=== PATIENT | female | born 1955 | race Caucasian/White ===

== ENCOUNTER 2019-07-17 14:35 | Inpatient (IN) | payer MEDICARE ==
[~2019-07-17] VITALS: Ht 157.4 cm; Wt 66.8 kg
[2019-07-17 15:01] VITALS: BP 129/74
[2019-07-17 17:14] LABS: BASO # 0.1 10*3/uL (0.0-0.1); BASO % 0.4 % (0.0-1.0); EOS # 0.1 10*3/uL (0.0-0.4); EOS % 0.4 % (1.0-4.0); HEMATOCRIT 33.9 % (37.0-47.0); HEMOGLOBIN 10.7 g/dl (12.0-16.0); LYMPH # 1.3 10*3/uL (1.3-4.4); LYMPH % 6.7 % (27.0-41.0); MEAN CELL VOLUME 87.4 fl (81.0-99.0); MEAN CORPUSCULAR HGB 27.6 pg (27.0-31.0); MEAN CORPUSCULAR HGB CONC 31.6 g/dl (33.0-37.0); MEAN PLATELET VOLUME 9.1 fl (9.6-12.3); MONO # 1.1 10*3/uL (0.1-1.0); MONO % 5.6 % (3.0-9.0); NEUT # 16.3 10*3/uL (2.3-7.9); NEUT % 85.8 % (47.0-73.0); PLATELET COUNT AUTOMATED 411 10*3/uL (130-400); RED BLOOD COUNT 3.88 10*6/uL (4.10-5.10); RED CELL DISTRI WIDTH 14.8 % (0-14.5)
[2019-07-17 17:26] LABS: ACT PARTIAL THROMBO TIME 33.9 SECONDS (20.0-32.1); ALBUMIN 2.6 gm/dl (3.1-4.5); ALKALINE PHOSPHATASE 126 U/L (45-117); BUN 8 mg/dl (7-24); CHLORIDE 99 mmol/L (98-107); LIPASE 56 U/L (73-393); POTASSIUM 3.9 mmol/L (3.5-5.1); SGOT/AST 7 IU/L (3-35); SGPT/ALT 10 U/L (12-78); SODIUM 133 mmol/L (136-145); TOTAL PROTEIN 6.8 gm/dL (6.4-8.2)
[2019-07-17 17:27] LABS: TROPONIN I < 0.015 ng/ml (<0.045)
[2019-07-17 17:56] LABS: BILIRUBIN NEGATIVE (NEGATIVE); BLOOD 2+ (NEGATIVE); CLARITY SL CLOUDY (CLEAR); COLOR YELLOW (YELLOW); GLUCOSE NEGATIVE (NEGATIVE); KETONE NEGATIVE (NEGATIVE); SPECIFIC GRAVITY 1.015 (1.005-1.030)
[2019-07-17 17:57] LABS: LEUKO ESTERASE NEGATIVE (NEGATIVE); NITRITE NEGATIVE (NEGATIVE); UROBILINOGEN 0.2 E.U./dl (0.2-1.0)
[2019-07-17 18:02] LABS: RBC 0-2 rbc/hpf (0-2)
[2019-07-17 18:03] LABS: BACTERIA 2+; MUCOUS TRACE
--- NOTE | 2019-07-17 20:48 | NUR ---
PATIENT STATES MORPHINE "EASED UP" THE PAIN IN HER SHOULDER BUT DID NOT TAKE IT AWAY COMPLETELY. PATIENT STATING THAT HER PAIN IS 10/10.
--- NOTE | 2019-07-17 21:20 | NUR ---
NORCO GIVEN PER C/O PAIN TO RT SHOULDER.
--- NOTE | 2019-07-17 22:20 | NUR ---
PT STATES NORCO NOT EFFECTIVE TO RELIEVE PAIN. MORPHINE PROVIDED FOR 10/10 PAIN TO RT SHOULDER. ICE PACK PROVIDED FOR COMFORT. WILL CONT TO MONITOR.
[2019-07-17 22:37] VITALS: BP 128/73
--- NOTE | 2019-07-17 22:37 | NUR ---
A 64, admitted to 4E, under the services of NAYA Lew DO with a diagnosis of LEUKOCYTOSIS, CHEST PAIN. Chief complaint is RIGHT SHOULDER PAIN THAT RADIATES DOWN RT ARM WITH NUMBNESS AND TINGLING IN FINER TIPS. Patient arrived via wheel chair from ER. Monitor applied. Initial assessment completed. Vital signs taken and recorded. NAYA LEW DO notified of admission to the unit. Orders received. See assessment for past medical history, medications and allergies. Patient and/or family oriented to unit. Clothing/patient valuable form completed. ADRIEN KHALIL
[2019-07-18] VITALS: BP 112/63
--- NOTE | 2019-07-18 01:20 | NUR ---
Pt provided with saltines and linn myah per request. ivf infusing per orders. pt states shoulder pain has eased up. encouraged to call for assistance. call brown in reach, bed in low, locked pos.
--- NOTE | 2019-07-18 04:12 | NUR ---
MORPHINE AND ZOFRAN GIVEN PER PT REQUEST FOR 8/10 PAIN TO RT ARM AND C/O NAUSEA. CALL LIGHT IN REACH.
[2019-07-18 06:27] LABS: BASO # 0.1 10*3/uL (0.0-0.1); BASO % 0.3 % (0.0-1.0); EOS # 0.1 10*3/uL (0.0-0.4); EOS % 0.9 % (1.0-4.0); HEMATOCRIT 34.8 % (37.0-47.0); HEMOGLOBIN 10.6 g/dl (12.0-16.0); LYMPH # 1.1 10*3/uL (1.3-4.4); LYMPH % 7.3 % (27.0-41.0); MEAN CELL VOLUME 87.7 fl (81.0-99.0); MEAN CORPUSCULAR HGB 26.7 pg (27.0-31.0); MEAN CORPUSCULAR HGB CONC 30.5 g/dl (33.0-37.0); MEAN PLATELET VOLUME 9.1 fl (9.6-12.3); MONO # 1.1 10*3/uL (0.1-1.0); MONO % 7.6 % (3.0-9.0); NEUT # 12.2 10*3/uL (2.3-7.9); NEUT % 82.7 % (47.0-73.0); PLATELET COUNT AUTOMATED 388 10*3/uL (130-400); RED BLOOD COUNT 3.97 10*6/uL (4.10-5.10); RED CELL DISTRI WIDTH 14.7 % (0-14.5); WHITE BLOOD COUNT 14.8 10*3/uL (4.8-10.8)
[2019-07-18 07:04] LABS: ALBUMIN 2.2 gm/dl (3.1-4.5); ALKALINE PHOSPHATASE 196 U/L (45-117); BUN 7 mg/dl (7-24); CHLORIDE 103 mmol/L (98-107); CHOLESTEROL 114 mg/dL (<200); CREATININE 0.65 mg/dL (0.55-1.02); FREE T4 1.38 ng/dl (0.76-1.46); HDL CHOLESTEROL 42 mg/dl (40-60); LDL CHOLESTEROL 55 mg/dL (9-159); PHOSPHOROUS 3.6 mg/dL (2.5-4.9); SGOT/AST 23 IU/L (3-35); SGPT/ALT 18 U/L (12-78); SODIUM 137 mmol/L (136-145); TOTAL PROTEIN 6.3 gm/dL (6.4-8.2); TRIGLYCERIDES 86 mg/dl (<150); VLDL CHOLESTEROL 17 mg/dL (6-40)
[2019-07-18 07:22] LABS: ACT PARTIAL THROMBO TIME 36.2 SECONDS (20.0-32.1)
[2019-07-18 08:00] VITALS: BP 113/69
[2019-07-18 08:00] LABS: VITAMIN D, 25-HYDROXY 14.4 ng/mL (30-100)
[2019-07-18] MEDS ORDERED: HYDROCODONE-AC1 EAC1 PO (09:39)
--- NOTE | 2019-07-18 10:15 | NUR ---
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 Patient states lives at home with son. There are 6 steps in the home. Physician: Renee Hilliard Pharmacy: [facility] ([facility]) Home health services: no Patient's level of ADLs: INDEPENDENT Patient has working utilities: yes DME: no Follow-up physician's appointment after d/c: yes Does patient want to access PORTAL?: yes Discharge plan Patient resides at home with her son. She has never needed VNA or SNF and states that she will have no need for home services at discharge. Anticipate pt returning home with no needs. FLORENCE ZENDEJAS
--- NOTE | 2019-07-18 11:33 | NUR ---
Discharge instructions reviewed with patient/family. Patient receptive and verbalizes understanding. Follow-up care arranged. Written instructions given to patient/family. CHA QUEZADA.
== END 2019-07-18 11:33 | disposition home or self-care (01) | DRG 73 ==
LOC: ED 14:35 → EDHOLD 18:39 → 4E 18:39
PROVIDERS: Internal Medicine; Physician Assistant; ADMIT Emergency Medicine
DX: M54.12 Radiculopathy, cervical region (principal); E43 Unspecified severe protein-calorie malnutrition; E87.1 Hypo-osmolality and hyponatremia; R65.10 Systemic inflammatory response syndrome (SIRS) of non-infectious origin without acute organ dysfunction; R07.89 Other chest pain; D72.829 Elevated white blood cell count, unspecified; D64.9 Anemia, unspecified; D47.3 Essential (hemorrhagic) thrombocythemia; F17.210 Nicotine dependence, cigarettes, uncomplicated; J44.9 Chronic obstructive pulmonary disease, unspecified; M79.603 Pain in arm, unspecified; Z68.26 Body mass index [BMI] 26.0-26.9, adult; Z88.8 Allergy status to other drugs, medicaments and biological substances; Z71.6 Tobacco abuse counseling; Z79.899 Other long term (current) drug therapy; Z90.49 Acquired absence of other specified parts of digestive tract; Z98.51 Tubal ligation status; Z80.8 Family history of malignant neoplasm of other organs or systems; Z82.49 Family history of ischemic heart disease and other diseases of the circulatory system

== ENCOUNTER 2019-10-24 15:44 | Emergency (ER) | payer MEDICARE ==
[~2019-10-24] VITALS: Ht 157.4 cm; Wt 81.6 kg
[~2019-10-24 15:44] MED LIST: HYDROCODONE-AC1 EAC1 PO
[2019-10-24 16:58] LABS: BASO # 0.1 10*3/uL (0.0-0.1); BASO % 0.5 % (0.0-1.0); EOS # 0.1 10*3/uL (0.0-0.4); EOS % 0.8 % (1.0-4.0); HEMATOCRIT 30.9 % (37.0-47.0); LYMPH % 10.4 % (27.0-41.0); MEAN CELL VOLUME 91.7 fl (81.0-99.0); MEAN CORPUSCULAR HGB 28.5 pg (27.0-31.0); MEAN CORPUSCULAR HGB CONC 31.1 g/dl (33.0-37.0); MEAN PLATELET VOLUME 10.5 fl (9.6-12.3); MONO # 0.7 10*3/uL (0.1-1.0); NEUT # 8.1 10*3/uL (2.3-7.9); NEUT % 80.1 % (47.0-73.0); PLATELET COUNT AUTOMATED 187 10*3/uL (130-400); RED BLOOD COUNT 3.37 10*6/uL (4.10-5.10); RED CELL DISTRI WIDTH 23.1 % (0-14.5)
[2019-10-24 18:26] LABS: ACT PARTIAL THROMBO TIME 30.1 SECONDS (20.0-32.1); INTERNATIONAL NORM RATIO 0.9 (2.0-3.5)
[2019-10-24 18:28] LABS: BUN 12 mg/dl (7-24); CHLORIDE 105 mmol/L (98-107); POTASSIUM 3.5 mmol/L (3.5-5.1); SODIUM 138 mmol/L (136-145)
[2019-10-24 18:34] LABS: TROPONIN I < 0.015 ng/ml (<0.045)
[2019-10-24] MEDS ORDERED: ELIQUIS5 M1 PO (19:32)
== END 2019-10-24 19:55 | disposition home or self-care (01) ==
LOC: ED 15:44
PROVIDERS: Emergency Medicine
DX: I80.9 Phlebitis and thrombophlebitis of unspecified site (principal); Z91.041 Radiographic dye allergy status